=== PATIENT | male | born 1990 | race Caucasian/White ===

== ENCOUNTER 2017-04-14 15:15 | Inpatient (IN) | payer OTHER ==
[~2017-04-14] VITALS: Ht 200.7 cm; Wt 93.6 kg
[2017-04-14] MEDS ORDERED: OPTIRAY 320 IV PRN (17:15)
[2017-04-14] MEDS ORDERED: VANCOMYCIN INJ 2,000 MG in SODIUM CHLORIDE 0.9% 500ML 500 ML IV STA (17:29)
[2017-04-14] MEDS ORDERED: PIPERACILLIN/TAZOBACTAM 3.375 GM/100ML D5W IV STA (17:29)
[2017-04-14] MEDS ORDERED: VANCOMYCIN CONSULT ACTIVE PRN (17:30)
--- NOTE | 2017-04-14 17:42 | EMERGENCY ROOM VISIT NOTE ---
ED Visit Note First contact with patient: 16:44 Staff note: I have reviewed the Patients chart and have discussed this case with my PA. I generally agree with the ED note and findings.
[2017-04-14 18:11] LABS: BASO % 0.2 %; BASO ABS # 0.02 K/uL (0-0.2); EOS % 0.8 %; EOS ABS # 0.07 K/uL (0-0.5); HEMATOCRIT 46.9 % (42-52); HEMOGLOBIN 16.1 g/dL (14.0-18.0); IG# 0.02 K/uL (0.00-0.02); LYMPH % 16.7 %; LYMPH ABS # 1.53 K/uL (1.2-3.4); MEAN CELL VOLUME 86.7 fL (80-100); MEAN CORPUSCULAR HEMOGLOBIN 29.8 pg (25-34); MEAN CORPUSCULAR HGB CONC 34.3 g/dl (32-36); MEAN PLATELET VOLUME 10.2 fL (7.4-10.4); MONO % 8.6 %; MONO ABS # 0.79 K/uL (0.11-0.59); NEUT % 73.5 %; NEUT ABS # 6.74 K/uL (1.4-6.5); PLATELET COUNT 234 K/uL (130-400); RED CELL DISTRIBUTION WIDTH CV 14.2 % (11.5-14.5); RED CELL DISTRIBUTION WIDTH SD 44.8 fL (36.4-46.3); WHITE BLOOD COUNT 9.17 K/uL (4.8-10.8)
[2017-04-14 18:35] LABS: ALBUMIN 3.8 gm/dl (3.4-5.0); CREATININE 0.88 mg/dl (0.60-1.40); POTASSIUM 3.7 mmol/L (3.5-5.1)
[2017-04-14 18:38] LABS: TOTAL PROTEIN 10.1 gm/dl (6.4-8.2)
[2017-04-14] MEDS ORDERED: SODIUM CHLORIDE 0.9% 1000ML 1,000 ML IV STA (19:04)
--- NOTE | 2017-04-14 19:15 | History and Physical ---
History & Physical Date & Time of Service: Apr 14, 2017 at 19:10 Chief Complaint: Swollen Groin Primary Care Physician: Moira Chaudhari M.D. (MEDICAL) History of Present Illness Source: patient This is a 26-year-old male presented to the emergency room with a complaint of erythema and pain in the left inguinal region. He states that he first noticed a an enlarged lump that he felt was most likely a lymph node located in the left inguinal area. That first appeared about a month and a half ago. He was placed on doxycycline. However over the last month and especially last 2 weeks this has increased in size and became erythematous. The pain increased in intensity and the pain spread from the inguinal region towards the midline over the mons pubis and then down along the lateral aspect of the inguinal region towards the scrotum but never entered the scrotum. He is increased pain if he tenses his abdominal muscles. There is no true dysuria or hematuria. He has not had any fever or chills. He denies nausea vomiting. He has been able to eat. There has not been any change in his bowel habits and he denies melena and hematochezia. Today the area began to drain a purulent material from the inferolateral aspect of the erythematous site. Past Medical/Surgical History Surgical Problems: (1) History of hernia repair Status: Resolved (2) History of reconstruction of anterior cruciate ligament tear Status: Resolved Social History Smoking Status: Never Smoker Smokeless Tobacco Use: No Alcohol Use: heavy Allergies Uncoded Allergies: EGGS (Allergy, Unknown, Unsure, 04/14/17) Home Medications No Active Prescriptions or Reported Meds Review of Systems Constitutional: No fever, No chills Respiratory: No cough, No sputum Cardiovascular: No chest pain, No orthopnea Abdomen: + problem reported (as per HPI) Genitourinary - Male: + problem reported (as per HPI) Endocrine: No fatigue Integumentary: No rash Physical Exam Vital Signs Date Time Temp Pulse Resp B/P (MAP) Pulse Ox O2 Delivery O2 Flow Rate FiO2 04/14/17 17:55 116 20 155/92 99 Room Air 04/14/17 15:24 36.7 113 20 154/90 96 Room Air General Appearance: WD/WN, no apparent distress Head: normocephalic Neck: supple, no adenopathy Respiratory/Chest: chest non-tender, lungs clear Cardiovascular: regular rate, rhythm Abdomen/GI: normal bowel sounds, soft, + pertinent finding (area of erythema that extends from the midline over the mons pubis laterally towards the inguinal crease remaining above the inguinal crease but extending down towards the scrotum but not involving the scrotum, small area of purulent drainage on the inferolateral aspect of the erythematous site) Back: normal inspection Extremities/Musculoskelatal: normal inspection Skin: no rash Diagnostics Laboratory Results Results Past 24 Hours Test 04/14/17 17:36 04/14/17 17:42 Range/Units White Blood Count 9.17 4.8-10.8 K/uL Red Blood Count 5.41 4.7-6.1 M/uL Hemoglobin 16.1 14.0-18.0 g/dL Hematocrit 46.9 42-52 % Mean Corpuscular Volume 86.7 80-100 fL Mean Corpuscular Hemoglobin 29.8 25-34 pg Mean Corpuscular Hemoglobin Concent 34.3 32-36 g/dl Platelet Count 234 130-400 K/uL Mean Platelet Volume 10.2 7.4-10.4 fL Neutrophils (%) (Auto) 73.5 % Lymphocytes (%) (Auto) 16.7 % Monocytes (%) (Auto) 8.6 % Eosinophils (%) (Auto) 0.8 % Basophils (%) (Auto) 0.2 % Neutrophils # (Auto) 6.74 1.4-6.5 K/uL Lymphocytes # (Auto) 1.53 1.2-3.4 K/uL Monocytes # (Auto) 0.79 0.11-0.59 K/uL Eosinophils # (Auto) 0.07 0-0.5 K/uL Basophils # (Auto) 0.02 0-0.2 K/uL RDW Standard Deviation 44.8 36.4-46.3 fL RDW Coefficient of Variation 14.2 11.5-14.5 % Immature Granulocyte % (Auto) 0.2 % Immature Granulocyte # (Auto) 0.02 0.00-0.02 K/uL Sodium Level 134 136-145 mmol/L Potassium Level 3.7 3.5-5.1 mmol/L Chloride Level 98 98-107 mmol/L Carbon Dioxide Level 27 21-32 mmol/L Anion Gap 10.0 3-11 mmol/L Blood Urea Nitrogen 5 7-18 mg/dl Creatinine 0.88 0.60-1.40 mg/dl Est Creatinine Clear Calc Drug Dose 141.2 ml/min Estimated GFR () 135.5 Estimated GFR (Non- 116.9 BUN/Creatinine Ratio 6.2 10-20 Random Glucose 77 70-99 mg/dl Calcium Level 10.0 8.5-10.1 mg/dl Total Bilirubin 0.5 0.2-1 mg/dl Aspartate Amino Transf (AST/SGOT) 43 15-37 U/L Alanine Aminotransferase (ALT/SGPT) 42 12-78 U/L Alkaline Phosphatase 94 45-117 U/L Total Protein 10.1 6.4-8.2 gm/dl Albumin 3.8 3.4-5.0 gm/dl Globulin 6.3 2.5-4.0 gm/dl Albumin/Globulin Ratio 0.6 0.9-2 Bedside Lactic Acid Venous 2.33 0.90-1.70 mmol/L Microbiology Results 04/14/17 Blood Culture, Received Pending 04/14/17 Blood Culture, Received Pending 04/14/17 Gram Stain - Final, Resulted 04/14/17 Wound Culture, Resulted Pending Impression Assessment and Plan This patient has an inguinal abscess on the left. It is firm and tender there. There is no generalized abdominal tenderness. This will need incision and drainage. He's been given vancomycin IV in the ER. I explained him the procedure and the possible complications and answered his questions. He has signed a consent form.
[2017-04-14 19:16] VITALS: O2SAT 96
[2017-04-14] MEDS ORDERED: BACITRACIN 50000 UNIT VIAL ONE (19:19)
[2017-04-14] MEDS ORDERED: BUPIVACAINE 0.5 % 5 MG/1 ML MPF 30ML VIAL ONE (19:19)
[2017-04-14] MEDS ORDERED: ATROPINE SULFATE 0.1 MG/ML 5ML SYR IV PRN (19:30)
[2017-04-14] MEDS ORDERED: NALOXONE HCL 0.4 MG/1 ML VIAL/CARP IV PRN (19:30)
[2017-04-14] MEDS ORDERED: EpHEDrine SULFATE INJ 50 MG/ML AMP IV PRN (19:30)
[2017-04-14] MEDS ORDERED: PHENYLEPHRINE 100MCG/ML 5ML SYR IV PRN (19:30)
[2017-04-14] MEDS ORDERED: MEPERIDINE HCL 25 MG/ML CARP IV PRN (19:30)
[2017-04-14] MEDS ORDERED: HYDROmorphone INJ 2 MG/ML SYR/VIAL IV PRN (19:30)
[2017-04-14] MEDS ORDERED: ONDANSETRON INJ 2 MG/ML 2 ML VIAL IV PRN ×2 (19:30→22:15)
[2017-04-14] MEDS ORDERED: FLUMAZENIL 0.1 MG/1 ML 10 ML VIAL IV PRN (19:30)
[2017-04-14] MEDS ORDERED: LABETALOL HCL IV 5 MG/ML 20ML IV PRN (19:30)
[2017-04-14] MEDS ORDERED: FENTANYL CITRATE INJ 50 MCG/1 ML 2 ML VIAL IV PRN (19:30)
[2017-04-14] MEDS ORDERED: MIDAZOLAM HCL 1 MG/ML 2ML VIAL ONE (19:35)
[2017-04-14] MEDS ORDERED: LIDOCAINE HCL 2% 2 ML VIAL (20MG/ML) ONE (19:35)
[2017-04-14] MEDS ORDERED: PROPOFOL IV EMULSION 10 MG/ML 20 ML VIAL IV ONE (19:35)
[2017-04-14] MEDS ORDERED: FENTANYL CITRATE INJ 50 MCG/1 ML 2 ML VIAL ONE ×3 (19:35→20:16)
[2017-04-14] MEDS ORDERED: ONDANSETRON INJ 2 MG/ML 2 ML VIAL ONE (19:36)
[2017-04-14] MEDS ORDERED: DEXAMETHASONE SOD INJ 4 MG/ML VIAL ONE (19:36)
[2017-04-14] MEDS ORDERED: ESMOLOL HCL 10 MG/ML 10 ML VIAL ONE (20:00)
[2017-04-14] MEDS ORDERED: CEFAZOLIN SOD 1 GM VIAL ONE (20:10)
--- NOTE | 2017-04-14 20:42 | Anesthesiology Progress Note ---
Anesthesia Post Op Note Date & Time Apr 14, 2017 at 20:42 Vital Signs Pain Intensity: 2 Vital Signs Past 12 Hours Date Time Temp Pulse Resp B/P (MAP) Pulse Ox O2 Delivery O2 Flow Rate FiO2 04/14/17 19:16 37.1 89 18 139/90 96 Room Air 04/14/17 17:55 116 20 155/92 99 Room Air 04/14/17 15:24 36.7 113 20 154/90 96 Room Air Notes Mental Status: alert / awake / arousable, participated in evaluation Pt Amnestic to Procedure: Yes Nausea / Vomiting: adequately controlled Pain: adequately controlled Airway Patency, RR, SpO2: stable & adequate BP & HR: stable & adequate Hydration State: stable & adequate Anesthetic Complications: no major complications apparent
--- NOTE | 2017-04-14 20:45 | [facility] Post Operative Brief Note ---
Immediate Operative Summary Operative Date Apr 14, 2017. Pre-Operative Diagnosis Left inguinal abcess Post-Operative Diagnosis Left inguinal abcess Procedure(s) Performed Incision and Drainage of Left Inguinal Abcess Surgeon Dr. Nguyen Marine Equipment Engineer Surgeon(s) none Estimated Blood Loss 10 ml Findings See dictation Specimens Microbiology 1. Left Inguinal Abcess-for C&S, anerobic and aerobic Drains None Anesthesia General Complication(s) None Disposition Recovery Room / PACU
--- NOTE | 2017-04-14 21:07 | EMERGENCY ROOM VISIT NOTE ---
History First contact with patient: 16:44 Chief Complaint: GROIN PAIN Stated Complaint: SWOLLEN GROIN History of Present Illness Patient is an otherwise healthy 26-year-old white male who presents emergency department for evaluation of an abscess involving the left groin area. Patient relates that his symptoms started about a month and half ago. He had a swollen area in his left inguinal crease that he thought was a lymph node. He was initially seen at the doctor's office sometime in February and at that time he was encouraged to just watch the area to see if it would improve on its own. He did have some blood work done at that time which is apparently unremarkable. He was seen in follow-up on April 03, at which point the area had gotten larger, more painful, red and swollen. He was placed on a course of doxycycline which she just finished on the . He states that he was set up for a surgical consultation on April 23. Patient states that today, the area opened up and is draining purulent material. He was seen again at his doctor's office and referred to the emergency department for concern regarding abscess/ cellulitis. The patient denies any improvement in his symptoms since it has begun draining. He denies any fever associated with the entire course of illness. He has not used any additional medications, and has only tried taking hot showers for discomfort. 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 The patient presently rates his discomfort a 5/10. He denies any involvement of the penis or the scrotum. No difficulty urinating or moving his bowels. Review of Systems Review of systems as per HPI. All other systems reviewed were negative. 10 systems reviewed. Past Medical/Surgical History Medical Problems: (1) Inguinal abscess (2) No Known Active Medical Problems Surgical Problems: (1) History of hernia repair (2) History of reconstruction of anterior cruciate ligament tear Electronic medical records are reviewed and summarized as above/below. See Problem List. Social History Smoking Status: Never Smoker Smokeless Tobacco Use: No Alcohol Use: heavy Drug Use: none Housing Status: lives alone Occupation Status: employed Current/Historical Medications No Active Prescriptions or Reported Meds Physical Exam Vital Signs Date Time Temp Pulse Resp B/P (MAP) Pulse Ox O2 Delivery O2 Flow Rate FiO2 04/14/17 20:45 103 13 130/79 99 Nasal Cannula 3 04/14/17 20:36 37.0 104 16 143/72 99 Nasal Cannula 3 04/14/17 19:16 37.1 89 18 139/90 96 Room Air 04/14/17 17:55 116 20 155/92 99 Room Air 04/14/17 15:24 36.7 113 20 154/90 96 Room Air Physical Exam CONSTITUTIONAL: Patient is a well-appearing 26-year-old white male who is awake and alert and in no acute distress. He is afebrile, noted to be mildly tachycardic. The remainder of his vital signs are normal. CARDIOVASCULAR: Regular rate and rhythm, with normal S1 and S2, no murmur or gallop or rub is heard. No carotid bruits auscultated. No JVD. Peripheral pulses easily palpable. RESPIRATORY: Breath sounds equal and clear to auscultation without wheezes, rales, or rhonchi heard. Full and equal chest expansion without accessory muscle use or retractions. ABDOMEN: Bowel sounds are present. Abdomen is soft, nontender and nondistended. Very low in the left lower abdomen/inguinal area, the patient has a very tender, be febrile indurated area consistent with cellulitis, with one area of pointing noted in the midportion superiorly, and an area inferiorly that is open and draining with purulent material. Lymphadenopathy is unable to be assessed due to the location of the abscess. : Normal-appearing uncircumcised penis. No swelling or erythema noted of the penis or the scrotum. Medical Decision & Procedures Laboratory Results 04/14/17 17:36 Red Blood Count 5.41, Mean Corpuscular Volume 86.7, Mean Corpuscular Hemoglobin 29.8, Mean Corpuscular Hemoglobin Concent 34.3, Mean Platelet Volume 10.2, Neutrophils (%) (Auto) 73.5, Lymphocytes (%) (Auto) 16.7, Monocytes (%) (Auto) 8.6, Eosinophils (%) (Auto) 0.8, Basophils (%) (Auto) 0.2, Neutrophils # (Auto) 6.74, Lymphocytes # (Auto) 1.53, Monocytes # (Auto) 0.79, Eosinophils # (Auto) 0.07, Basophils # (Auto) 0.02 04/14/17 17:36 Test 04/14/17 17:36 04/14/17 17:42 White Blood Count 9.17 K/uL (4.8-10.8) Red Blood Count 5.41 M/uL (4.7-6.1) Hemoglobin 16.1 g/dL (14.0-18.0) Hematocrit 46.9 % (42-52) Mean Corpuscular Volume 86.7 fL (80-100) Mean Corpuscular Hemoglobin 29.8 pg (25-34) Mean Corpuscular Hemoglobin Concent 34.3 g/dl (32-36) Platelet Count 234 K/uL (130-400) Mean Platelet Volume 10.2 fL (7.4-10.4) Neutrophils (%) (Auto) 73.5 % Lymphocytes (%) (Auto) 16.7 % Monocytes (%) (Auto) 8.6 % Eosinophils (%) (Auto) 0.8 % Basophils (%) (Auto) 0.2 % Neutrophils # (Auto) 6.74 K/uL (1.4-6.5) Lymphocytes # (Auto) 1.53 K/uL (1.2-3.4) Monocytes # (Auto) 0.79 K/uL (0.11-0.59) Eosinophils # (Auto) 0.07 K/uL (0-0.5) Basophils # (Auto) 0.02 K/uL (0-0.2) RDW Standard Deviation 44.8 fL (36.4-46.3) RDW Coefficient of Variation 14.2 % (11.5-14.5) Immature Granulocyte % (Auto) 0.2 % Immature Granulocyte # (Auto) 0.02 K/uL (0.00-0.02) Anion Gap 10.0 mmol/L (3-11) Est Creatinine Clear Calc Drug Dose 141.2 ml/min Estimated GFR () 135.5 Estimated GFR (Non- 116.9 BUN/Creatinine Ratio 6.2 (10-20) Calcium Level 10.0 mg/dl (8.5-10.1) Total Bilirubin 0.5 mg/dl (0.2-1) Aspartate Amino Transf (AST/SGOT) 43 U/L (15-37) Alanine Aminotransferase (ALT/SGPT) 42 U/L (12-78) Alkaline Phosphatase 94 U/L (45-117) Total Protein 10.1 gm/dl (6.4-8.2) Albumin 3.8 gm/dl (3.4-5.0) Globulin 6.3 gm/dl (2.5-4.0) Albumin/Globulin Ratio 0.6 (0.9-2) Bedside Lactic Acid Venous 2.33 mmol/L (0.90-1.70) Medications Administered Medications (Trade) Dose Ordered Sig/Govind Route Start Time Stop Time Status Last Admin Dose Admin Vancomycin HCl 2000 mg/Sodium Chloride 540 ml @ 200 mls/hr ONE STAT IV 04/14/17 17:29 04/14/17 20:10 DC 04/14/17 19:00 200 MLS/HR Piperacillin Sod/ Tazobactam Sod (Zosyn Iv) 3.375 gm NOW STAT IV 04/14/17 17:29 04/14/17 17:34 DC 04/14/17 18:12 3.375 GM Bupivacaine HCl (Marcaine 0.5% MPF Inj) 30 ml STK-MED ONCE .ROUTE 04/14/17 19:19 04/14/17 19:20 DC 04/14/17 20:24 10 ML Cefazolin Sodium (Ancef Inj) 1,000 mg STK-MED ONCE .ROUTE 04/14/17 20:10 04/14/17 20:11 DC 04/14/17 20:18 1,000 MG ED Course The patient was seen and evaluated as above. History and presentation were reviewed with attending physician and ED workup was agreed upon. IV lock was initiated and laboratory studies were collected including CBC with differential , CMP, [id number] lactic acid and blood cultures 2. The area that was open and draining was also cleansed with saline, and culture was obtained. The patient was given Zosyn 3.375 g and vancomycin 2 g IV empirically. The patient was reviewed with Dr. Nguyen, General Surgery, who agreed to evaluate the patient in the emergency department. He felt that CT scan was not necessary at this time, pending his evaluation, therefore CT scan of the pelvis with IV contrast that had been ordered was canceled. Laboratory studies noted a normal white count at 9100, no left shift or bandemia. H&H is normal. Electrolytes are without significant abnormality. Renal functions are normal. Lactic acid is elevated at 2.33. The patient was ordered a liter bolus of normal saline solution. Dr. Nguyen presented to the emergency department, evaluated the patient and decided to take him to the OR for I&D of the abscess. Please refer to his H&P and operative note for further information. Differential diagnoses included sepsis, SIRS, abscess, cellulitis, Marcos's gangrene, among others. Medical Decision See ED Course. Medication Reconcilliation Current Medication List: was personally reviewed by me Blood Pressure Screening Patient's blood pressure: Elevated blood pressure Blood pressure disposition: Elevated BP felt to be situational Impression Primary Impression: Abscess or cellulitis of groin Departure Information Dispostion Being Evaluated By Surgeon Prescriptions No Active Prescriptions or Reported Meds Referrals Moira Chaudhari M.D. (MEDICAL) (PCP) Patient Instructions My [facility]
[2017-04-14] MEDS ORDERED: IV FLUIDS COMPLETED PRN (21:15)
[2017-04-14 21:25] VITALS: BP 137/88; PULSE 104; TEMP 36.6; O2SAT 97
--- NOTE | 2017-04-14 21:38 | OPERATIVE REPORT ---
DATE OF OPERATION: 04/14/2017 PREOPERATIVE DIAGNOSIS: Left inguinal abscess. POSTOPERATIVE DIAGNOSIS: Same. PROCEDURE: Incision and drainage of left inguinal abscess. SURGEON: Tacos Nguyen MD. FINDINGS: The patient had an abscess that extended from the midline in the suprapubic region laterally towards the left side and down towards the scrotum. It did not involve the scrotum. It did not reach the penis. It did not go below the inguinal crease. There was purulent material within it that was cultured. It had spontaneously drained through an opening on the inferolateral aspect of the site of erythema. TECHNIQUE: The patient was given a general anesthetic and the area was prepped and draped in the usual sterile fashion. A Kellen clamp was placed through the ER spontaneous opening. This extended into the cavity which went up to the midline where I was able to identify the extent of the cavity and make a counter incision over the mons pubis and connected to incisions through the cavity. My finger was then inserted through both of those to open any loculations. The cavity was then irrigated with copious amount of saline solution using the pulse lavage. The cavity was evacuated of any irrigation and then packed with half-inch plain Nu Gauze. The skin was cleansed and a dressing placed. The estimated blood loss was 10 mL. Sponge, needle and instrument counts were correct prior to closure. The patient tolerated the surgical procedure without complication and was transferred to recovery. I attest to the content of the Intraoperative Record and any orders documented therein. Any exception s are noted below.
[2017-04-14 21:55] VITALS: BP 132/85; PULSE 89; TEMP 37; O2SAT 94; Ht 200.7 cm; Wt 93.6 kg
[2017-04-14] MEDS ORDERED: NURSING VERBAL MED ORDER ONE (22:00)
[2017-04-14 22:25] VITALS: BP 135/81; PULSE 100; TEMP 36.5; O2SAT 95
[2017-04-14] MEDS: AMPICILLIN/SULBACTAM SOD INJ 3,000 MG in SODIUM CHLORIDE 0.9% 100ML 100 ML IV SCH (22:44)
[2017-04-14 23:30] VITALS: BP 143/86; PULSE 93; TEMP 36.7; O2SAT 96
[2017-04-14] MEDS: D5W AND 1/2NSS + 20MEQ KCL 1,000 ML IV SCH (23:44)
[2017-04-15 00:25] VITALS: BP 133/75; PULSE 64; O2SAT 96
[2017-04-15 03:15] VITALS: BP 136/87; PULSE 78; TEMP 36.2; O2SAT 97
[2017-04-15] MEDS: AMPICILLIN/SULBACTAM SOD INJ 3,000 MG in SODIUM CHLORIDE 0.9% 100ML 100 ML IV SCH ×3 (03:58→15:48)
[2017-04-15 06:58] VITALS: BP 128/84; PULSE 63; TEMP 36.6; O2SAT 95
[2017-04-15 07:45] LABS: BASO % 0.1 %; BASO ABS # 0.01 K/uL (0-0.2); HEMATOCRIT 42.1 % (42-52); HEMOGLOBIN 14.4 g/dL (14.0-18.0); IG# 0.02 K/uL (0.00-0.02); LYMPH % 8.2 %; LYMPH ABS # 0.92 K/uL (1.2-3.4); MEAN CELL VOLUME 87.2 fL (80-100); MEAN CORPUSCULAR HEMOGLOBIN 29.8 pg (25-34); MEAN CORPUSCULAR HGB CONC 34.2 g/dl (32-36); MEAN PLATELET VOLUME 10.3 fL (7.4-10.4); MONO % 6.2 %; NEUT % 85.3 %; NEUT ABS # 9.62 K/uL (1.4-6.5); PLATELET COUNT 219 K/uL (130-400); RED CELL DISTRIBUTION WIDTH SD 44.1 fL (36.4-46.3); WHITE BLOOD COUNT 11.27 K/uL (4.8-10.8)
[2017-04-15] MEDS ORDERED: ACETAMINOPHEN 325 MG TAB PO PRN (09:30)
--- NOTE | 2017-04-15 09:35 | Surgery Progress Note ---
Surgery Progress Note Date of Service Apr 15, 2017. Subjective Post OP Day: 1 (s/p incision and drainage of left groin abscess) + feeling well, + complaints (has some penile swelling, pain about 2-3/10 at rest), + pain controlled, + diet, No chest pain, No SOB, No nausea, No vomiting Objective Vital Signs: Date Time Temp Pulse Resp B/P (MAP) Pulse Ox O2 Delivery O2 Flow Rate FiO2 04/15/17 07:59 Room Air 04/15/17 06:58 36.6 63 16 128/84 (99) 95 Room Air 04/15/17 03:15 36.2 78 16 136/87 (103) 97 Room Air 04/15/17 00:25 64 16 133/75 (94) 96 Room Air 04/14/17 23:45 Room Air 04/14/17 23:30 36.7 93 16 143/86 (105) 96 Room Air 04/14/17 22:25 36.5 100 16 135/81 (99) 95 Room Air 04/14/17 21:55 37.0 89 18 132/85 (101) 94 Room Air 04/14/17 21:55 Room Air 04/14/17 21:30 Nasal Cannula 2.0 04/14/17 21:25 Nasal Cannula 2.0 04/14/17 21:25 36.6 104 14 137/88 (104) 97 Nasal Cannula 2.0 04/14/17 21:15 104 15 138/92 99 Nasal Cannula 2 04/14/17 21:05 36.6 95 18 139/88 99 Nasal Cannula 2 04/14/17 20:55 104 15 125/97 99 Nasal Cannula 2 04/14/17 20:45 103 13 130/79 99 Nasal Cannula 3 04/14/17 20:36 37.0 104 16 143/72 99 Nasal Cannula 3 04/14/17 19:16 37.1 89 18 139/90 96 Room Air 04/14/17 17:55 116 20 155/92 99 Room Air 04/14/17 15:24 36.7 113 20 154/90 96 Room Air General Appearance: WD/WN, no apparent distress Head: normocephalic, atraumatic Neck: trachea midline Respiratory/Chest: no respiratory distress, no accessory muscle use Incision(s): clean, erythema, findings (There are two surgical incisions of the left groin, both clean with healthy grandulation tissues, surrounding eryhtema, edema, and induration. No spreading of erythema to the penis or scrotum. Penile edema present but no constriction) Laboratory Results: Results Past 24 Hours Test 04/14/17 17:36 04/14/17 17:42 04/15/17 07:27 Range/Units White Blood Count 9.17 11.27 4.8-10.8 K/uL Red Blood Count 5.41 4.83 4.7-6.1 M/uL Hemoglobin 16.1 14.4 14.0-18.0 g/dL Hematocrit 46.9 42.1 42-52 % Mean Corpuscular Volume 86.7 87.2 80-100 fL Mean Corpuscular Hemoglobin 29.8 29.8 25-34 pg Mean Corpuscular Hemoglobin Concent 34.3 34.2 32-36 g/dl Platelet Count 234 219 130-400 K/uL Mean Platelet Volume 10.2 10.3 7.4-10.4 fL Neutrophils (%) (Auto) 73.5 85.3 % Lymphocytes (%) (Auto) 16.7 8.2 % Monocytes (%) (Auto) 8.6 6.2 % Eosinophils (%) (Auto) 0.8 0.0 % Basophils (%) (Auto) 0.2 0.1 % Neutrophils # (Auto) 6.74 9.62 1.4-6.5 K/uL Lymphocytes # (Auto) 1.53 0.92 1.2-3.4 K/uL Monocytes # (Auto) 0.79 0.70 0.11-0.59 K/uL Eosinophils # (Auto) 0.07 0.00 0-0.5 K/uL Basophils # (Auto) 0.02 0.01 0-0.2 K/uL RDW Standard Deviation 44.8 44.1 36.4-46.3 fL RDW Coefficient of Variation 14.2 14.0 11.5-14.5 % Immature Granulocyte % (Auto) 0.2 0.2 % Immature Granulocyte # (Auto) 0.02 0.02 0.00-0.02 K/uL Sodium Level 134 136-145 mmol/L Potassium Level 3.7 3.5-5.1 mmol/L Chloride Level 98 98-107 mmol/L Carbon Dioxide Level 27 21-32 mmol/L Anion Gap 10.0 3-11 mmol/L Blood Urea Nitrogen 5 7-18 mg/dl Creatinine 0.88 0.60-1.40 mg/dl Est Creatinine Clear Calc Drug Dose 141.2 ml/min Estimated GFR () 135.5 Estimated GFR (Non- 116.9 BUN/Creatinine Ratio 6.2 10-20 Random Glucose 77 70-99 mg/dl Calcium Level 10.0 8.5-10.1 mg/dl Total Bilirubin 0.5 0.2-1 mg/dl Aspartate Amino Transf (AST/SGOT) 43 15-37 U/L Alanine Aminotransferase (ALT/SGPT) 42 12-78 U/L Alkaline Phosphatase 94 45-117 U/L Total Protein 10.1 6.4-8.2 gm/dl Albumin 3.8 3.4-5.0 gm/dl Globulin 6.3 2.5-4.0 gm/dl Albumin/Globulin Ratio 0.6 0.9-2 Bedside Lactic Acid Venous 2.33 0.90-1.70 mmol/L Microbiology Results 04/14/17 Blood Culture, Received Pending 04/14/17 Blood Culture, Received Pending 04/14/17 Gram Stain - Final, Resulted 04/14/17 Bacterial Culture, Resulted Pending 04/14/17 Gram Stain - Final, Resulted 04/14/17 Wound Culture, Resulted Pending Assessment & Plan POD # 1 s/p incision and drainage of left groin abscess -vitals stable, afebrile overnight - Leukocytosis of 11.27K this morning - Pain minimal at rest, has had no pain medication ("would like to drive home on discharge") Plan: Continue current pain management, will add PO Tylenol and Ibuprofen as needed for pain Continue IV Antibiotics, await culture results Continue regular diet May apply ice to penis/scrotum for 20 minutes TID Packing will need to be changed tomorrow morning Repeat am labs Dr. Nguyen has seen and examined patient, agrees with above
[2017-04-15] MEDS: IBUPROFEN 600 MG TAB PO PRN ×2 (10:11→23:39)
[2017-04-15 11:29] VITALS: BP 126/77; PULSE 61; TEMP 36.5; O2SAT 96
[2017-04-15] MEDS: D5W AND 1/2NSS + 20MEQ KCL 1,000 ML IV SCH (15:15)
[2017-04-15 15:41] VITALS: BP 134/86; PULSE 62; TEMP 36.3; O2SAT 100
[2017-04-15 22:55] VITALS: BP 138/92; PULSE 66; TEMP 36.8; O2SAT 96
[2017-04-16] MEDS ORDERED: NURSING DECISION MEDICATION ORDER SCH (01:15)
[2017-04-16] MEDS: D5W AND 1/2NSS + 20MEQ KCL 1,000 ML IV SCH (04:15)
[2017-04-16 07:10] VITALS: BP 126/81; PULSE 61; TEMP 36.8; O2SAT 97
[2017-04-16 09:15] LABS: BASO % 0.3 %; BASO ABS # 0.02 K/uL (0-0.2); EOS % 1.1 %; EOS ABS # 0.07 K/uL (0-0.5); HEMATOCRIT 43.9 % (42-52); LYMPH % 18.7 %; LYMPH ABS # 1.18 K/uL (1.2-3.4); MEAN CORPUSCULAR HEMOGLOBIN 30.4 pg (25-34); MEAN CORPUSCULAR HGB CONC 34.2 g/dl (32-36); MEAN PLATELET VOLUME 9.9 fL (7.4-10.4); MONO % 9.8 %; MONO ABS # 0.62 K/uL (0.11-0.59); NEUT % 70.1 %; NEUT ABS # 4.41 K/uL (1.4-6.5); PLATELET COUNT 174 K/uL (130-400); RED CELL DISTRIBUTION WIDTH CV 14.3 % (11.5-14.5); RED CELL DISTRIBUTION WIDTH SD 46.4 fL (36.4-46.3)
--- NOTE | 2017-04-16 09:33 | Surgery Progress Note ---
Surgery Progress Note Date of Service Apr 16, 2017. Subjective + feeling well Less pain, still draining Objective Vital Signs: Date Time Temp Pulse Resp B/P (MAP) Pulse Ox O2 Delivery O2 Flow Rate FiO2 04/16/17 07:10 36.8 61 16 126/81 (96) 97 Room Air 04/15/17 23:35 Room Air 04/15/17 22:55 36.8 66 16 138/92 (107) 96 Room Air 04/15/17 15:48 Room Air 04/15/17 15:41 36.3 62 18 134/86 (102) 100 Room Air 04/15/17 11:29 36.5 61 14 126/77 (93) 96 Room Air Abdomen: + pertinent finding (Has much less erythema, base of incisions clean and dry) Laboratory Results: Results Past 24 Hours Test 04/16/17 08:53 Range/Units White Blood Count 6.30 4.8-10.8 K/uL Red Blood Count 4.93 4.7-6.1 M/uL Hemoglobin 15.0 14.0-18.0 g/dL Hematocrit 43.9 42-52 % Mean Corpuscular Volume 89.0 80-100 fL Mean Corpuscular Hemoglobin 30.4 25-34 pg Mean Corpuscular Hemoglobin Concent 34.2 32-36 g/dl Platelet Count 174 130-400 K/uL Mean Platelet Volume 9.9 7.4-10.4 fL Neutrophils (%) (Auto) 70.1 % Lymphocytes (%) (Auto) 18.7 % Monocytes (%) (Auto) 9.8 % Eosinophils (%) (Auto) 1.1 % Basophils (%) (Auto) 0.3 % Neutrophils # (Auto) 4.41 1.4-6.5 K/uL Lymphocytes # (Auto) 1.18 1.2-3.4 K/uL Monocytes # (Auto) 0.62 0.11-0.59 K/uL Eosinophils # (Auto) 0.07 0-0.5 K/uL Basophils # (Auto) 0.02 0-0.2 K/uL RDW Standard Deviation 46.4 36.4-46.3 fL RDW Coefficient of Variation 14.3 11.5-14.5 % Immature Granulocyte % (Auto) 0.0 % Immature Granulocyte # (Auto) 0.00 0.00-0.02 K/uL Diagnostic Interpretation: Cultures with no growth so far Assessment & Plan S/P I&D of inguinal abscess Packing removed, irrigated wound and repacked Cultures show no growth to this point Continue Unasyn
[2017-04-16] MEDS: MoRPHine SULFATE 4 MG/ML 1 ML CARP\\VIAL IV PRN (14:51)
[2017-04-16] MEDS: AMPICILLIN/SULBACTAM SOD INJ 3,000 MG in SODIUM CHLORIDE 0.9% 100ML 100 ML IV SCH ×2 (15:09→20:01)
[2017-04-16 15:27] VITALS: BP 143/92; PULSE 85; TEMP 36.7; O2SAT 98
[2017-04-16] MEDS ORDERED: NURSING VERBAL MED ORDER ONE (18:45)
[2017-04-16 23:13] VITALS: BP 153/98; PULSE 90; TEMP 37.4; O2SAT 96
[2017-04-17] MEDS: AMPICILLIN/SULBACTAM SOD INJ 3,000 MG in SODIUM CHLORIDE 0.9% 100ML 100 ML IV SCH ×4 (01:54→20:20)
[2017-04-17] MEDS: OXYCODONE/ACETAMINOPHEN 5-325 TAB PO PRN ×2 (05:56→21:09)
[2017-04-17 07:20] VITALS: BP 129/86; PULSE 64; TEMP 36.8; O2SAT 98
[2017-04-17 16:06] VITALS: BP 128/85; PULSE 73; TEMP 37; O2SAT 94
--- NOTE | 2017-04-17 16:11 | Discharge Instructions ---
Discharge Instructions Date of Service Apr 17, 2017. Admission Reason for Admission: Inguinal Abscess Discharge Discharge Diagnosis / Problem: same Discharge Goals Goal(s): Decrease discomfort, Improve function Activity Recommendations Activity Limitations: as noted below No strenuous activity until cleared by surgeon No submerging incisions underwater until healed (no swimming, hot tubs, or bathing) No driving while taking narcotic pain medication or until you are pain free . Instructions / Follow-Up Instructions / Follow-Up You may shower, gently clean incisions with soap and water and pat dry. Keep dressings over the incisions and change as needed to keep clean and dry as much as possible Walking and light activity is encouraged to prevent blood clots form forming in legs Follow-up in surgical office next week, please call office at [phone] to make an appointment You will be given prescription for antibiotic, please take as directed and finish entire course You will be given prescription for narcotic pain medication to take as needed for moderate to severe pain. You may take Tylenol/Ibuprofen as needed for mild pain. Current Hospital Diet Patient's current hospital diet: Regular Diet Discharge Diet Recommended Diet: Regular Diet Procedures Procedures Performed: Incision and Drainage of Left Inguinal Abcess Pending Studies Studies pending at discharge: yes List of pending studies: final culture results still pending Medical Emergencies . Who to Call and When: Medical Emergencies: If at any time you feel your situation is an emergency, please call 911 immediately. . Non-Emergent Contact Non-Emergency issues call your: Primary Care Provider, Surgeon Call Non-Emergent contact if: you have a fever, temperature is above 101, your pain is not controlled, your pain is worsening, your pain is unusual for you, wound has increased drainage, wound has increased redness, wound has increased pain . "Provider Documentation" section prepared by Nory Benz. . VTE Core Measure Inpt VTE Proph given/why not?: SCD's [place] Drug Monitoring Program Search Results: patient reviewed within database, no issues identified
--- NOTE | 2017-04-17 16:17 | Surgery Progress Note ---
Surgery Progress Note Date of Service Apr 17, 2017. Subjective Post OP Day: 3 + feeling well, + ambulating, + diet, No complaints, No nausea, No vomiting Objective Vital Signs: Date Time Temp Pulse Resp B/P (MAP) Pulse Ox O2 Delivery O2 Flow Rate FiO2 04/17/17 16:06 37.0 73 18 128/85 (99) 94 Room Air 04/17/17 08:00 Room Air 04/17/17 07:20 36.8 64 16 129/86 (100) 98 Room Air 04/16/17 23:40 Room Air 04/16/17 23:13 37.4 90 20 153/98 (116) 96 Room Air 04/16/17 19:30 Room Air General Appearance: WD/WN, no apparent distress Head: normocephalic, atraumatic Neck: trachea midline Respiratory/Chest: no respiratory distress, no accessory muscle use Incision(s): clean, no erythema, drainage (packing present with serosanguineous drainage ), findings (the surrounding erythema and induration has significantly improved, no evidence of streaking erythema or fluctuance) Assessment & Plan POD # 3 s/p incision and drainage of left groin abscess - vitals stable, afebrile overnight - Leukocytosis resolved - Pain minimal, swelling has significantly improved Plan: Continue current pain management Continue IV Unasyn, await culture results Continue regular diet May apply ice to penis TID prn swelling Packing will be removed tomorrow morning Discharge tomorrow morning with oral Augmentin Dr. Nguyen has seen and examined patient, agrees with above
[2017-04-17 22:54] VITALS: BP 136/92; PULSE 73; TEMP 36.6; O2SAT 94
[2017-04-18] MEDS: AMPICILLIN/SULBACTAM SOD INJ 3,000 MG in SODIUM CHLORIDE 0.9% 100ML 100 ML IV SCH ×2 (01:50→10:19)
[2017-04-18 07:14] VITALS: BP 120/85; PULSE 76; TEMP 36.7; O2SAT 96
[2017-04-18] MEDS: MoRPHine SULFATE 4 MG/ML 1 ML CARP\\VIAL IV PRN (07:35)
[2017-04-18] MEDS ORDERED: OXYC-57 PO (12:46)
[2017-04-18] MEDS ORDERED: AMOX875T PO (12:46)
--- NOTE | 2017-04-18 13:05 | Surgery Progress Note ---
Surgery Progress Note Date of Service Apr 18, 2017. Subjective Post OP Day: 4 (s/p incision and drainage of left inguinal abscess) + feeling well, + diet, No complaints, No nausea, No vomiting Objective Vital Signs: Date Time Temp Pulse Resp B/P (MAP) Pulse Ox O2 Delivery O2 Flow Rate FiO2 04/18/17 08:00 Room Air 04/18/17 07:14 36.7 76 18 120/85 (97) 96 Room Air 04/17/17 23:25 Room Air 04/17/17 22:54 36.6 73 16 136/92 (107) 94 Room Air 04/17/17 16:06 37.0 73 18 128/85 (99) 94 Room Air 04/17/17 16:00 Room Air General Appearance: WD/WN, no apparent distress Head: normocephalic, atraumatic Neck: trachea midline Respiratory/Chest: no respiratory distress, no accessory muscle use Incision(s): clean, drainage (serosanguienous drainage, packing has fallen out of lateral incision, small amount left in medial incision. Mild edema but improved, no induration or fluctance.) Assessment & Plan POD # 4 s/p I&D of left inguinal abscess - vitals stable - pain controlled, minimal - erythema, induration resolved Plan: Discharge home today Instructions reviewed Rx for Percocet as needed and Augmentin 10 day course follow up surgery office in [address] Nguyen has seen and examined patient, agrees with above.
[2017-04-18 13:57] VITALS: BP 120/85; PULSE 76; TEMP 36.7; O2SAT 96
--- NOTE | 2017-04-21 10:50 | Discharge Summary ---
Discharge Summary Dates Admission Date / Time: Apr 15, 2017 at 10:24 Discharge Date: Apr 18, 2017 Dispostion / Condition Discharge Disposition: Home Condition at Discharge: Good Principal Diagnosis (1) Inguinal abscess Problem List (1) No significant active problems Consultations / Procedures Procedures: Incision and drainage of left inguinal abscess Pending Studies / Follow-Up Final wound culture results pending on discharge Medication Reconciliation New Medications: Amoxicillin & Pot Clavulanate (Augmentin 875-125 mg) 1 Tab Tab 1 TAB PO BID for 10 Days, #20 TAB Oxycodone/Acetaminophen 5MG/325MG (Percocet 5MG/325MG) Tab 1 TABLET PO Q4H PRN for Pain, #18 TAB Admission HPI Per the Admitting provider: This is a 26-year-old male presented to the emergency room with a complaint of erythema and pain in the left inguinal region. He states that he first noticed a an enlarged lump that he felt was most likely a lymph node located in the left inguinal area. That first appeared about a month and a half ago. He was placed on doxycycline. However over the last month and especially last 2 weeks this has increased in size and became erythematous. The pain increased in intensity and the pain spread from the inguinal region towards the midline over the mons pubis and then down along the lateral aspect of the inguinal region towards the scrotum but never entered the scrotum. He is increased pain if he tenses his abdominal muscles. There is no true dysuria or hematuria. He has not had any fever or chills. He denies nausea vomiting. He has been able to eat. There has not been any change in his bowel habits and he denies melena and hematochezia. Today the area began to drain a purulent material from the inferolateral aspect of the erythematous site. Admission Exam Per the Admitting provider: General Appearance: WD/WN, no apparent distress Head: normocephalic Neck: supple, no adenopathy Respiratory/Chest: chest non-tender, lungs clear Cardiovascular: regular rate, rhythm Abdomen/GI: normal bowel sounds, soft, + pertinent finding (area of erythema that extends from the midline over the mons pubis laterally towards the inguinal crease remaining above the inguinal crease but extending down towards the scrotum but not involving the scrotum, small area of purulent drainage on the inferolateral aspect of the erythematous site) Back: normal inspection Extremities/Musculoskelatal: normal inspection Skin: no rash Hospital Course (1) Inguinal abscess Patient was taken to operating room for incision and drainage of left inguinal abscess by Dr. Nguyen. Patient tolerated procedure well and was transferred to recovery and then to medical/surgical floor in stable condition. He was started on IV fluids, IV antibiotics (Unasyn q 6 hrs), PO Percocet with breakthrough IV Morphine as needed for pain, IV Zofran as needed for nausea, activity as tolerated, SCDs, and regular diet. He was evaluated in the morning on POD # 0. Pain was mild, had not had any pain medication since surgery. CBC elevated at 11.27K. There was still some induration, erythema and edema present. Wound packed with gauze x 2. No erythema spreading to the penis or scrotum however there was some edema present. Urinating without difficulty. Was advised to apply ice to help with edema and may take Ibuprofen/Tylenol as needed for pain if does not want narcotics. Patient evaluated on POD # 1. Packing removed, wound flushed, and packing replaced. Edema and erythema improved. Afebrile and leukocytosis resolved. Wound culture still pending. Superficial wound culture showing corynebacterium species. POD # 2 edema and erythema mostly resolved, pain minimal. Afebrile overnight and vitals stable. Tolerating regular diet. POD # 3 packing was removed. Patient was discharged home with a 10 day course of Augmentin. Advised to follow up in surgical office in 1 week. Discharge Instructions as given to patient Copies To Primary Care Provider: Moira Chaudhari M.D. (MEDICAL).
== END 2017-04-18 14:30 | disposition home or self-care (01) | DRG 581 ==
LOC: C.EDB 15:17 → C.MSW 20:50 → ENRESERV 21:05 → OBSVTOIN 04-15 10:24
PROVIDERS: ADMIT Surgery; ATTEND Surgery
PROC: 0J9C0ZZ Drainage of Pelvic Region Subcutaneous Tissue and Fascia, Open Approach (ICD-10-PCS; principal; 2017-04-14 19:30)
DX: L02.214 Cutaneous abscess of groin (principal); Z72.89 Other problems related to lifestyle